=== PATIENT | female | born 1960 | race Caucasian/White ===

== ENCOUNTER 2017-04-04 07:30 | Inpatient (IN) | payer BC ==
--- OUTSIDE RECORDS SUMMARY | 2017-04-11 05:58 | XMS REPORT ---
:1960 External Reference #:[id number] Author Organization [facility] [employer] Address [address] [address] Phone [phone] Care Team Providers Name Role Phone Terri Merritt PA Primary Care Physician Unavailable Payers Type Date Identification Numbers Payment Provider Subscriber Commercial Policy Number: [id number] [employer] Gerda Batista Group Name: 804 [address] [address] PayID: [id number] [place] [address] Problems Date Description Provider Status Onset: 03/18/2017 Sciatica Juan Diego Garcia M.D. Active Onset: 08/03/2016 Ganglion/synovial cyst - ankle/foot Juan Diego Garcia M.D. Active Onset: 11/11/2015 Localized, primary osteoarthritis Juan Digeo Garcia M.D. 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 as needed [place] Active Tablets 5-325mg 1-2 by mouth Unknown /0000 every 4 hours as needed Multi Complete 00 Active Capsules daily Unknown /0000 Probiotic 00 Active Capsules 1 by mouth Unknown /0000 every day Almotriptan Active Tablets 12.5mg 1 by mouth Unknown Malate /0000 twice a day as needed migraine max 2 days/wk Vitamin E 00 Hx Capsules 100Unit occasionally Unknown /0000 - 03/14 Aspirin 00 Hx Chewtabs 81mg 1 by mouth Unknown /0000 every day - 03/14 Axert Hx Tablets 12.5mg 1 twice a day Unknown /0000 max 2d/wk - 04/04 Caltrate 600+D Hx Chewtabs 600-400mg 1 by mouth Unknown /0000 -Unit twice a day - 03/15 Glucosamine Hx Capsules 1500Com 1 by mouth Unknown Chondroitin 1500 /0000 every day Complex - 03/14 Meloxicam Hx Tablets 7.5mg take 1 tab by Unknown /0000 mouth qdaily - with food 03/15 Turmeric Hx Capsules 500mg 2 tabs 3x a Unknown Curcumin / day - 03/14 Vitamin D-1000 Hx Tablets 1000Unit 1 by mouth Unknown Maximum Strength /0000 every day - 03/14 Meloxicam Hx Tablets 7.5mg take one tab Unknown /0000 twice daily - as needed for 04/04 pain, other nsaids Vital Signs Date Vital Result Comment 04/06/2017 Height 64 inches 5'4" Weight 231.00 lb Heart Rate 80 /min BP Systolic Recheck 132 mmHg BP Diastolic Recheck 84 mmHg Respiratory Rate 16 /min Body Temperature 98.0 F BMI (Body Mass Index) 39.6 kg/m2 03/23/2017 Height 64 inches 5'4" Weight 243.00 lb BP Systolic 130 mmHg BP Diastolic 80 mmHg Respiratory Rate 16 /min Body Temperature 97.0 F Pain Level 3 BMI (Body Mass Index) 41.7 kg/m2 03/18/2017 Height 64 inches 5'4" Weight 243.00 lb Heart Rate 88 /min BP Systolic Recheck 134 mmHg BP Diastolic Recheck 86 mmHg Respiratory Rate 16 /min Body Temperature 97.9 F BMI (Body Mass Index) 41.7 kg/m2 12/14/2016 Height 64 inches 5'4" Weight 226.00 lb Heart Rate 76 /min BP Systolic Recheck 122 mmHg BP Diastolic Recheck 80 mmHg Respiratory Rate 16 /min Body Temperature 98.6 F BMI (Body Mass Index) 38.8 kg/m2 08/03/2016 Height 64 inches 5'4" Weight 225.00 lb Heart Rate 76 /min BP Systolic Recheck 130 mmHg BP Diastolic Recheck 80 mmHg Respiratory Rate 16 /min Body Temperature 98.0 F BMI (Body Mass Index) 38.6 kg/m2 07/06/2016 Height 64 inches 5'4" Weight 225.00 lb Heart Rate 80 /min BP Systolic Recheck 128 mmHg BP Diastolic Recheck 80 mmHg Respiratory Rate 16 /min Body Temperature 98.0 F BMI (Body Mass Index) 38.6 kg/m2 06/22/2016 Height 64 inches 5'4" Weight 225.00 lb Heart Rate 76 /min BP Systolic Recheck 134 mmHg BP Diastolic Recheck 86 mmHg Respiratory Rate 16 /min Body Temperature 98.0 F BMI (Body Mass Index) 38.6 kg/m2 06/11/2016 Height 64 inches 5'4" Weight 226.00 lb Heart Rate 76 /min BP Systolic Recheck 128 mmHg BP Diastolic Recheck 84 mmHg Respiratory Rate 16 /min Body Temperature 98.1 F BMI (Body Mass Index) 38.8 kg/m2 05/18/2016 Height 64 inches 5'4" Weight 225.00 lb Heart Rate 76 /min BP Systolic Recheck 130 mmHg BP Diastolic Recheck 84 mmHg Respiratory Rate 16 /min Body Temperature 98.2 F BMI (Body Mass Index) 38.6 kg/m2 03/23/2016 Height 64 inches 5'4" Weight 225.00 lb Heart Rate 80 /min BP Systolic Recheck 130 mmHg BP Diastolic Recheck 84 mmHg Respiratory Rate 16 /min Body Temperature 98.6 F BMI (Body Mass Index) 38.6 kg/m2 11/11/2015 Height 64 inches 5'4" Weight 224.00 lb Heart Rate 80 /min BP Systolic Recheck 122 mmHg BP Diastolic Recheck 84 mmHg Respiratory Rate 16 /min Body Temperature 97.9 F BMI (Body Mass Index) 38.4 kg/m2 Results Test Date Test Result H/L Range Note CBC No Diff 03/23/2017 White Blood Count 5.5 10^3/uL 3.5-10.8 1 Red Blood Count 5.01 10^6/uL 4.0-5.4 1 Hemoglobin 14.1 g/dL 12.0-16.0 1 Hematocrit 42 % 35-47 1 Mean Corpuscular Volume 84 fL 80-97 1 Mean Corpuscular Hemoglobin 28 pg 27-31 1 Mean Corpuscular HGB Conc 33 g/dL 31-36 1 Red Cell Distribution Width 15 % 10.5-15 1 Platelet Count 275 10^3/uL 150-450 1 Mean Platelet Volume 9 um3 7.4-10.4 1 Comp Metabolic Panel 03/23/2017 Sodium 138 mmol/L 133-145 1 Potassium 4.1 mmol/L 3.5-5.0 1 Chloride 101 mmol/L 101-111 1 Co2 Carbon Dioxide 31 mmol/L 22-32 1 Anion Gap 6 mmol/L 2-11 1 Glucose 85 mg/dL 70-100 1 Blood Urea Nitrogen 15 mg/dL 6-24 1 Creatinine 0.83 mg/dL 0.51-0.95 1 BUN/Creatinine Ratio 18.1 8-20 1 Calcium 9.8 mg/dL 8.6-10.3 1 Total Protein 7.0 g/dL 6.4-8.9 1 Albumin 4.2 g/dL 3.2-5.2 1 Globulin 2.8 g/dL 2-4 1 Albumin/Globulin Ratio 1.5 1-3 1 Total Bilirubin 0.40 mg/dL 0.2-1.0 1 Alkaline Phosphatase 93 U/L 34-104 1 Alt 27 U/L 7-52 1 Ast 15 U/L 13-39 1 Egfr Non- 71.1 >60 1 Egfr 91.5 >60 1, 2 Inr/Protime 03/23/2017 Inr 0.95 0.77-1.02 1 Laboratory test finding 03/23/2017 Partial Thrombo Time 27.2 seconds 26.0 -36.3 1, 3 PTT Type & Screen 03/23/2017 Patient Blood Type A Positive 1 Antibody Screen NEGATIVE 1 Urinalysis Profile 03/23/2017 Urine Color Straw Urine Appearance Clear Urine Specific [place] 1.005 Low 1.010-1.030 Urine pH 6.0 5-9 Urine Urobilinogen Negative Negative Urine Ketones Negative Negative Urine Protein Negative Negative Urine Leukocytes Negative Negative Urine Blood Negative Negative Urine Nitrite Negative Negative Urine Bilirubin Negative Negative Urine Glucose Negative Negative Urine Culture And Sensitivities 03/23/2017 Urine Culture SEE RESULT BELOW 4 1 AA 04/11 2 Because ethnic data is not always readily available, this report includes an eGFR for both -Americans and non- Americans. The National Kidney Disease Education Program (NKDEP) does not endorse the use of the MDRD equation for patients that are not between the ages of 18 and 70, are , have extremes of body size, muscle mass, or nutritional status, or are non- or non-. According to the National Kidney Foundation, irrespective of diagnosis, the stage of the disease is based on the level of kidney function: Stage Description GFR(mL/min/1.73 m(2)) 1 Kidney damage with normal or decreased GFR 90 2 Kidney damage with mild decrease in GFR 60-89 3 Moderate decrease in GFR 30-59 4 Severe decrease in GFR 15-29 5 Kidney failure <15 (or dialysis) 3 AA 04/11 4 SEE RESULT BELOW Name: GERDA BATISTA : [address]: Juan Diego Garcia MD Acct: [id number] Unit: [id number] AGE: 56 Location: [facility] Re03/23/17 SEX: F Status: REG REF SPEC: [id number] CHALO: 03/23/17-[address] [place] [address] DR: Juan Diego Garcia MD REQ: [id number] RECD: 03/23/17 STATUS: MARLEE ROCK DR: Terri Merritt PA _ SOURCE: URINE [facility]: ORDERED: Urine Culture Procedure Result Reported Site Urine Culture Final 03/24/17900 ML No Growth (<1,000 CFU/mL) * ML - MAIN LAB ([facility]) . END OF REPORT * ML=Testing performed at Main Lab DEPARTMENT OF PATHOLOGY, [address] [place] [address] Eros Fisher M.D. Director [facility] # [id number] Procedures Date CPT Code Description Status 03/18/2017 Inject/Drain Joint/Bursa Major Completed 07/06/2016 Inject/Drain Joint/Bursa Major Completed 06/22/2016 Inject/Drain Joint/Bursa Major Completed 06/11/2016 Inject/Drain Joint/Bursa Major Completed 03/23/2016 Inject/Drain Joint/Bursa Major Completed Encounters Type Date Location Provider CPT E/M Dx Office Visit 03/18/2017 [facility] 06733 M17.12 1:30p [facility] M54.31 Office Visit 12/14/2016 2:30p [facility] 78015 M17.11 [facility] M67.472 Office Visit 08/03/2016 2:45p [facility] M.D. 66451 M17.0 [facility] M67.472 Office Visit 06/22/2016 2:30p [facility] 68849 M17.12 [facility] M70.51 Office Visit 05/18/2016 3:45p [facility] 38653 M17.0 [facility] Office Visit 03/23/2016 3:30p [facility] 12642 M17.11 [facility] Office Visit 11/11/2015 3:30p [facility] 47999 M17.0 [facility] Plan of Care Future Appointment(s):10/05/2017 2:00 pm - John Matt M.D. at [facility] Gfhvdzuz53/20/2018 10:30 am - Juan Diego Garcia M.D. at [facility] Qfhhvujl29/29/2018 10:00 am - DELIA Tirado at [facility]/11/2017 10:00 am - Juan Diego Garcia M.D. at [facility]
--- OUTSIDE RECORDS SUMMARY | 2017-04-11 05:59 | XMS REPORT ---
:1960 External Reference #:[id number] Author Organization [facility] Address [address] [address] Phone [phone] Care Team Providers Name Role Phone Terri Merritt PA Care Team Information Organ Recovery Coordinator Unavailable Terri Merritt PA Primary Care Physician Unavailable Payers Type Date Identification Numbers Payment Provider Subscriber Commercial Policy Number: [id number] BS [employer] Gerda Batista Group Name: [id number] [address] [address] PayID: [id number] [place] [address] Problems Date Description Provider Status Onset: 03/18/2017 Sciatica Juan Diego Garcia M.D. Active Onset: 08/03/2016 Ganglion/synovial cyst - ankle/foot Juan Diego Garcia M.D. Active Onset: 11/11/2015 Localized, primary osteoarthritis Juan Diego Garcia M.D. 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 as needed Axert Active Tablets 12.5mg 1 twice a day Unknown /0000 max 2d/wk [place] 00 Active Tablets 5-325mg 1-2 by mouth Unknown /0000 every 4 hours as needed Multi Complete Active Capsules daily Unknown /0000 Meloxicam Active Tablets 7.5mg take one tab Unknown /0000 twice daily as needed for pain, avoid other nsaids Probiotic Active Capsules 1 by mouth Unknown /0000 every day Vitamin E 00 Hx Capsules 100Unit occasionally Unknown /0000 - 03/14 Aspirin Hx Chewtabs 81mg 1 by mouth Unknown /0000 every day - 03/14 Caltrate 600+D Hx Chewtabs 600-400mg 1 by mouth Unknown /0000 -Unit twice a day - 03/15 Glucosamine Hx Capsules 1500Com 1 by mouth Unknown Chondroitin 1500 /0000 every day Complex - 03/14 Meloxicam Hx Tablets 7.5mg take 1 tab by Unknown /0000 mouth qdaily - with food 03/15 Turmeric Hx Capsules 500mg 2 tabs 3x a Unknown day - 03/14 Vitamin D-1000 Hx Tablets 1000Unit 1 by mouth Unknown Maximum Strength /0000 every day - 03/14 Vital Signs Date Vital Result Comment 03/18/2017 Height 64 inches 5'4" Weight 243.00 [...] BMI (Body Mass Index) 38.4 kg/m2 Results Description No Information Procedures Date CPT Code Description Status 03/18/201739121 Inject/Drain Joint/Bursa Major Completed 07/06/201642496 Inject/Drain Joint/Bursa Major Completed 06/22/201676697 Inject/Drain Joint/Bursa Major Completed 06/11/201624960 Inject/Drain Joint/Bursa Major Completed 03/23/201613205 Inject/Drain Joint/Bursa Major Completed Encounters Type Date Location Provider CPT E/M Dx Office Visit 12/14/2016 [facility], 45007 M17.11 2:30p [facility] M67.472 Office Visit 08/03/2016 2:45p [facility] M.D. 61433 M17.0 [facility] M67.472 Office Visit 06/22/2016 2:30p [facility] 83041 M17.12 [facility] M70.51 Office Visit 05/18/2016 3:45p [facility] 88973 M17.0 Service Order Exped[facility] Office Visit 03/23/2016 3:30p [facility] 76740 M17.11 Service Order Exped[facility] Office Visit 11/11/2015 3:30p [facility] 06642 M17.0 [facility] Plan of Care Future Appointment(s):03/23/2017 9:00 am - [facility] Diego Garcia M.D. at [facility]/04/2017 7:30 am - DELIA Tirado at [facility]05/03/2017 10:30 am - Juan Diego Garcia M.D. at [facility] Pkevziwu99/22/2018 7:30 am - Juan Diego Garcia M.D. at [facility]03/18/2017 - Juan Diego Garcia M.D.M17.12 Unilateral primary osteoarthritis, left kneeM54.31 Sciatica, right sideFollow up:week before or the week of 05/02 (4 weeks from surgery)
--- OUTSIDE RECORDS SUMMARY | 2017-04-11 05:59 | XMS REPORT ---
:1960 External Reference #:[id number] Author Organization [employer] Address [address] [address] Phone [phone] Care Team Providers Name Role Phone Terri Merritt PA Primary Care Physician Unavailable Payers Type Date Identification Numbers Payment Provider Subscriber Commercial Policy Number: [id number] [facility] Gerda Batista Group Name: 804 [address] [address] PayID: [id number] [place] [address] Problems Date Description Provider Status Onset: 03/18/2017 Sciatica Juan Diego Garcia M.D. Active Onset: 08/03/2016 Ganglion/synovial cyst - ankle/foot Juan Diego Garcia M.D. Active Onset: 11/11/2015 Localized, primary osteoarthritis Juan Diego Garcia M.D. 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 as needed Axert Active Tablets 12.5mg 1 twice a day Unknown /0000 max 2d/wk [place] 00 Active Tablets 5-325mg 1-2 by mouth [...] 03/14 Vital Signs Date Vital Result Comment 03/23/2017 Height 64 inches 5'4" Weight 243.00 [...] Information Procedures Date CPT Code Description Status 03/18/201750411 Inject/Drain Joint/Bursa Major Completed 07/06/201620090 Inject/Drain Joint/Bursa Major Completed 06/22/201612691 Inject/Drain Joint/Bursa Major Completed 06/11/201619317 Inject/Drain Joint/Bursa Major Completed 03/23/201688798 Inject/Drain Joint/Bursa Major Completed Encounters Type Date Location Provider CPT E/M Dx Office Visit 12/14/2016 [facility], [address] M17.11 2:30p Backroom Associate [facility] M67.472 Office Visit 08/03/2016 2:45p [facility] M.D. 73482 M17.0 [facility] M67.472 Office Visit 06/22/2016 2:30p [facility] [address]3580 M17.12 [facility] M70.51 Office Visit 05/18/2016 3:45p [facility] [address]98[address] M17.0 Rad[facility] Office Visit 03/23/2016 3:30p [facility] 65761 M17.11 Back[facility] Office Visit 11/11/2015 3:30p [facility] 38888 M17.0 [facility] Plan of Care Future Appointment(s):04/11/2017 9:30 am - DELIA Tirado at [facility]/03/2017 10:30 am - Juan Diego Garcia M.D. at [facility] At Sxbflkqw60/29/2018 9:30 am - [facility] Garcia M.D. at [facility]
--- OUTSIDE RECORDS SUMMARY | 2017-04-11 05:59 | XMS REPORT ---
:1960 External Reference #:[id number] Author Organization [facility] Address [address] [address] Phone [phone] Care Team Providers Name Role Phone Terri Merritt PA Primary Care Physician Unavailable Payers Type Date Identification Numbers Payment Provider Subscriber Commercial Policy Number: [id number] [facility] Gerda Batista Group Name: 804 [address] [address] PayID: [id number] [place] [address] Problems Date Description Provider Status Onset: 03/18/2017 Sciatica Juan Diego Garcia M.D. Active Onset: 08/03/2016 Ganglion/synovial cyst - ankle/foot Juan Diego Garcia M.D. Active Onset: 11/11/2015 Localized, primary osteoarthritis Juan Diego Garcia M.D. 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 ETOH Use Denies alcohol use Smoking [...] twice a day Unknown /0000 max 2d/wk [place] 00 Active Tablets 5-325mg 1-2 by mouth [...] Information Procedures Date CPT Code Description Status 03/18/201784765 Inject/Drain Joint/Bursa Major Completed 07/06/201630785 Inject/Drain Joint/Bursa Major Completed 06/22/201696564 Inject/Drain Joint/Bursa Major Completed 06/11/201619637 Inject/Drain Joint/Bursa Major Completed 03/23/201667282 Inject/Drain Joint/Bursa Major Completed Encounters Type Date Location Provider CPT E/M Dx Office Visit 12/14/2016 [facility], 125[address] M17.11 2:30p 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 12065 M17.0 Materials Handling Coord[facility] M67.472 Office Visit 06/22/2016 2:30p [facility] 93220 M17.12 Materials Handling Coord[facility] M70.51 Office Visit 05/18/2016 3:45p [facility] 85649 M17.0 [facility] Office Visit 03/23/2016 3:30p [facility] 42587 M17.11 Materials Handling Coord[facility] Office Visit 11/11/2015 3:30p [facility] 70401 M17.0 [facility] Plan of Care Future Appointment(s):04/11/2017 9:30 am - DELIA Tirado at [facility]/03/2017 10:30 am - Juan Diego Garcia M.D. at [facility] At Vgfyowjk71/29/2018 9:30 am - [facility] Garcia M.D. at [facility]
[2017-04-11] MEDS ORDERED: Buffered Lidocaine 0.9% SYRIN* 5 ML/SYR SYRINGE INTRADERM ONE (06:00)
[2017-04-11] MEDS ORDERED: Clindamycin 900 MG IVPREMIX(* 900 MG/50 ML SDV IV ONE (06:02)
[2017-04-11] MEDS ORDERED: Buffered Lidocaine 0.9% SYRIN* 5 ML/SYR SYRINGE ONE (06:02)
[2017-04-11] MEDS ORDERED: ceFAZolin 2 GM PREMIX (*) 2 GM/50 ML BAG IVPB ONE (07:05)
[2017-04-11] MEDS ORDERED: Midazolam* 1 MG/ML 2 ML VIAL (2 MG) ONE ×2 (07:11→07:44)
[2017-04-11] MEDS ORDERED: fentaNYL* 50 MCG/ML 2 ML VIAL (100 MCG VIAL) ONE (07:11)
[2017-04-11] MEDS ORDERED: Bupivacaine 0.5% SDV PF* 10-30ML VIAL ONE ×2 (07:20→08:22)
[2017-04-11] MEDS ORDERED: Lidocaine 1% MPF wEPI 200,000* 30 ML SDV ONE (07:20)
[2017-04-11] MEDS ORDERED: Morphine PF AMP (0.5MG/ML)* 5 MG/10 ML AMP ONE (07:56)
[2017-04-11] MEDS ORDERED: Ondansetron INJ* 2 MG/ML VIAL ONE (08:16)
[2017-04-11] MEDS ORDERED: Famotidine IV* 10 MG/ML 2 ML (20 mg) ONE (08:16)
[2017-04-11] MEDS ORDERED: Metoclopramide IV* 5 MG/ML 2 ML VIAL ONE (08:16)
[2017-04-11] MEDS ORDERED: Ketorolac INJ* 30 MG/ML 1 ML VIAL ONE (08:16)
[2017-04-11] MEDS ORDERED: Dexamethasone IV* 4 MG/ML 1 ML (4 MG) ONE (08:16)
[2017-04-11] MEDS ORDERED: diPHENhydraMINE IV* 50 MG/ML 1 ml VIAL (BENADRYL) ONE ×2 (08:22→11:15)
[2017-04-11] MEDS ORDERED: Scopolamine 1.5 mg* PATCH ONE (08:25)
[2017-04-11] MEDS ORDERED: EPHEDrine (Pressors)* 50 MG/ML VIAL ONE (08:25)
[2017-04-11] MEDS ORDERED: Propofol* 10 MG/ML 20 ML BTL IV PUSH ONE ×2 (09:25→09:26)
[2017-04-11] MEDS ORDERED: fentaNYL* 50 MCG/ML 2 ML VIAL (100 MCG VIAL) IV PRN (10:02)
[2017-04-11] MEDS ORDERED: Naloxone* 0.4 MG/ML 1 ML VIAL IV PRN ×2 (10:02→10:03)
[2017-04-11] MEDS ORDERED: PROCHLORPERAZINE INJ 5 MG/ML 2 ML VIAL IV PRN (10:03)
[2017-04-11] MEDS ORDERED: Ondansetron INJ* 2 MG/ML VIAL IV PRN (10:03)
[2017-04-11] MEDS ORDERED: Naloxone* 2 MG in NS 0.9% 250 ML* 250 ML IV PRN (10:03)
[2017-04-11] MEDS ORDERED: diPHENhydraMINE IV* 50 MG/ML 1 ml VIAL (BENADRYL) IV PRN (10:03)
[2017-04-11] MEDS ORDERED: Nalbuphine* 20 MG/ML 1 ML VIAL IV PRN ×2 (10:03)
[2017-04-11] MEDS ORDERED: Acetaminophen TAB* 325 MG PO PRN (10:03)
[2017-04-11] MEDS ORDERED: HYDROcodone/ACETAMIN 5-325 MG* 1 TAB PO PRN (10:03)
[2017-04-11] MEDS ORDERED: oxyCODONE/Acetamin 5/325 MG* TAB PO PRN ×2 (11:09)
[2017-04-11] MEDS ORDERED: oxyCODONE TAB* 5 MG TAB PO PRN (11:09)
[2017-04-11] MEDS ORDERED: Polyethylene Glycol 3350* 17 GM PACKET PO PRN (11:09)
[2017-04-11] MEDS ORDERED: Magnesium Hydroxide LIQ* 30 ML UDC PO PRN (11:09)
[2017-04-11] MEDS ORDERED: ALMOTRIPTAN 12.5 MG PO PRN (11:24)
--- NOTE | 2017-04-11 12:14 | RAD ---
HISTORY: Status post right knee arthroplasty COMPARISONS: March 23, 2017 VIEWS: 2, Frontal and lateral views of the right knee FINDINGS: BONE DENSITY: Normal. BONES: The patient is status post right knee arthroplasty. There is no hardware failure or osteolysis. JOINTS: The patient is status post right knee arthroplasty. ALIGNMENT: There is no dislocation. SOFT TISSUES: There is post surgical change to the soft tissue. OTHER FINDINGS: None. IMPRESSION: STATUS POST RIGHT KNEE ARTHROPLASTY.
[2017-04-11] MEDS ORDERED: DiMENhydriNATE IV* 50 MG/ML VIAL ONE (12:36)
[2017-04-11] MEDS: DiMENhydriNATE IV* 50 MG/ML VIAL IV PUSH PRN ×2 (12:36→22:02)
[2017-04-11] MEDS: D5W 1/2 NS 1000 ML BAG* 1,000 ML IV SCH (13:53)
[2017-04-11] MEDS: Ketorolac INJ* 30 MG/ML 1 ML VIAL IV PUSH SCH ×2 (14:49→18:10)
[2017-04-11] MEDS: ceFAZolin 1 GM in Dextrose (*) 1 GM/50 ML BAG IVPB SCH (16:44)
[2017-04-11] MEDS ORDERED: Warfarin TAB(*) 10 MG PO ONE (17:00)
[2017-04-11] MEDS: Docusate CAP* 100 MG PO SCH (21:59)
[2017-04-11] MEDS: Allopurinol TAB* 300 MG PO SCH (21:59)
[2017-04-11] MEDS: Magnesium Hydroxide LIQ* 30 ML UDC PO SCH (22:00)
[2017-04-12] MEDS: D5W 1/2 NS 1000 ML BAG* 1,000 ML IV SCH (00:48)
[2017-04-12] MEDS: Ketorolac INJ* 30 MG/ML 1 ML VIAL IV PUSH SCH ×4 (00:49→17:28)
[2017-04-12] MEDS: ceFAZolin 1 GM in Dextrose (*) 1 GM/50 ML BAG IVPB SCH ×2 (00:55→08:06)
--- NOTE | 2017-04-12 01:04 | CONS ---
CONSULTATION REPORT: DATE OF CONSULT: 04/11/17 REQUESTING SERVICE: Orthopedics. REASON FOR CONSULT: Medical co-management. CHIEF COMPLAINT: Postop day 0 from right TKA. HISTORY OF PRESENT ILLNESS: This is a 56-year-old female with a history of migraines and a thyroid nodule and arthritis who presents today for an elective right total knee replacement. 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 Payan today. She was seen in her room postoperatively and at this time has no complaints. PAST MEDICAL HISTORY: Migraine, hot flashes, osteoarthritis, and thyroid nodule. HOME MEDICATIONS: 1. Flexeril 10 mg t.i.d. p.r.n. 2. Axert 12.5 mg b.i.d. p.r.n. migraines. 3. Bertrand p.r.n. pain. 4. Mobic p.r.n. pain. 5. Probiotic daily. 6. Aspirin 81 mg daily. ALLERGIES: CODEINE, DILAUDID, PENICILLIN, and TRAMADOL. FAMILY HISTORY: Her father of a myocardial infarction at age 62. Her mother had emphysema. SOCIAL HISTORY: She lives with her . She has never smoked though she was exposed to second-hand smoke. She does not drink alcohol or use any drugs. 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 REVIEW OF SYSTEMS: She denies recent fevers, chills, weight loss, weight gain, headaches, chest pain, shortness of breath, nausea, vomiting, diarrhea, or constipation. PHYSICAL EXAM: Temperature 97.9, heart rate 56, respiratory rate 12, pulse ox 100% on 1 L, and blood pressure 131/61. General: Alert, well-appearing female , in no distress. HEENT: Pupils are equal, round, and reactive to light. Moist mucosa. No oropharyngeal exudates or erythema. Neck: No JVP. No lymphadenopathy. Thyroid is nonpalpable. Chest: Regular rate and rhythm. No murmurs. PMI nondisplaced. Lungs: Clear bilaterally. Abdomen: Soft and nontender. Obese. Nondistended. No guarding or rigidity. Extremities: Right knee dressed. Distal pulses are 2+ bilaterally. Sensation is grossly intact. Neurologic: Oriented x3. ASSESSMENT AND PLAN: This is a 56-year-old female with a history of a thyroid nodule and migraines who was admitted today for elective right TKA. 1. Postop day #0. Continue pain management, PT, and Laird catheter removal as per Orthopedics plan. 2. Thyroid nodule. This was biopsied at [place] last month and the results were reported to be equivocal. She received a second opinion with [facility] who suggested that no further biopsy was needed and that she should follow up with them for a repeat ultrasound. Nothing to do during this hospitalization. 3. Migraines. She takes a baby aspirin for this as well as Axert p.r.n. Nothing to do while she is admitted unless she gets a migraine. 4. Menopause. She is to undergo hormone replacement therapy after discharge and will follow up with her PCP for this. 5. DVT prophylaxis. Warfarin per Orthopedics orders. [id number] #: [id number] MTDD
--- NOTE | 2017-04-12 01:46 | OP ---
DATE OF OPERATION: 04/11/17 - ROOM #341 DATE OF : 60 ATTENDING SURGEON: Juan Diego Garcia MD DIRECTOR MEDICAL SURGICAL: DELIA Rodgers ANESTHESIOLOGIST: Dr. Hassan ANESTHESIA: Regional spinal and sedation. PRE-OP DIAGNOSIS: Osteoarthritis, right knee. POST-OP DIAGNOSIS: Osteoarthritis, right knee. OPERATIVE PROCEDURE: Right total knee arthroplasty. ESTIMATED BLOOD LOSS: 50 cc. COMPLICATIONS: None. HARDWARE: Genevieve low maite implants. FlexPro D femur, #3 tibia, 12-mm polyethylene, 32 mm all polyethylene patellar button. INDICATIONS: Mrs. Batista is a 56-year-old female who has been having troubles with her knees for sometime. She was [id number] on the medial compartment, significant spurring and arthrosis in all 3 compartments. 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 Risks of surgery such as infection, scar formation, stiffness, DVT, pulmonary embolism, hardware failure, and continued pain were some of the risks discussed. She had been declared medically optimized and wished to proceed. DESCRIPTION OF PROCEDURE: The patient was brought to the OR and a femoral nerve block was placed. Spinal anesthesia was then introduced. Tourniquet was placed over the proximal right thigh and was used during the case. Total tourniquet time would be approximately 75 minutes. Right knee was prepped and then draped. Esmarch was used to exsanguinate the leg and the tourniquet was raised. Midline incision was made centered about the patella and carried proximally and distally for about 7 cm. Incision was carried down through the skin and subcutaneous fat. Extensor mechanism was exposed and sharp parapatellar arthrotomy was made. Quite a bit of clear yellowish joint fluid was encountered. Small pearls were also encountered in the suprapatellar pouch. Fat pad was sharply excised and soft tissues were sharply elevated from the medial side of the tibia. Patella measured 22 mm in thickness and a nice 10 mm cut was taken. Patella was then easily subluxated laterally and the knee was flexed up. Step drill was used to open up the femoral canal and intramedullary guide was placed. Guide was adjusted until it was parallel with the epicondyle and then distal femoral cutting guide was pinned into place. Intramedullary guide was removed and a distal femoral cut was taken. This had been set to take 2 mm from the femur as well as set in an angle of 2 degrees. She appeared to have quite the straight femur and I wanted to try and take a little bit more from the medial side. Femur was sized and a D sat nicely. Holes were drilled and pins were placed. Cutting block was placed and amisha wing was used to make sure I would not notch anteriorly and this needed to be brought up some. After redrilling and placing the pins twice, finally it appeared I would take a nice cut anteriorly and cutting guide was replaced. Anterior femoral cut was taken and the anterior cut was perfect. Posterior and chamfer cuts were then taken. Attention was turned to the tibia. Step drill was used to open up the tibial canal and symmetric guide was placed. Outrigger was assembled and adjusted until it would take 2 mm from the worn medial side. Proximal tibial cut was taken and it appeared a nice cut was obtained. Spacer block was placed and she sat in valgus. It could be seen where some of this was on the tibia and some of this was on the femur. Tibia was then recut taking more from the lateral side and tibial alignment was now perfect. On the femur, I free-ended a cut taking an additional thickness of the saw blade from the medial side and then leveled this off to the lateral side. Cutting block was replaced and the chamfer cuts were recut. A 12 spacer block now sat very nicely and there was just a little bit of plate to the varus stress where she has opened a little bit. Her motion, however, was better where before she did not come out into full extension and now she locked out fully. She was limited in flexion more by her body habitus. Tibia was sized and a 3 sat perfectly. Hole was drilled and proximal tibia was punched. Attention was returned to the femur. Notch cut was finished using the notch cut finishing guide and a stud holes were drilled. She was trailed with a 12 and came out nicely into full extension and flexed easily. Without the trial, the patella tended to drift off the femur some. Patella was sized and a 32 and sat very nicely. Holes were drilled and trial was snapped into place. With no thumbs, patellar tracking was fine. Knee was then copiously pulse lavaged. Trial instrumentation was removed and the knee was again pulse lavaged. Cement and stem extension for the tibia was being prepared. Tibia followed by femur and patella were all cemented into place. Excess cement was removed and the cement was allowed to harden. Once the cement had hardened, the knee was searched for excess cement. The tourniquet was then let down. Few small bleeders encountered were ligated using electrocautery. Knee was then copiously pulse lavaged and searched for cement. Few small pieces were found. The knee was again copiously pulse lavaged, again searched, and looked good. 12 polyethylene was then snapped into place. She had the same very good motion and stability. Parapatellar arthrotomy was repaired using interrupted #1 Vicryl sutures. Knee was again pulse lavaged and the subcutaneous tissue were reapproximated in layers using 2-0 Vicryl. Skin was closed using stanford. Sterile dressing and a Cryo/Cuff were applied in the OR. The patient was then awakened and stable on transfer to the recovery room. [id number]/[facility] #: [id number] NANI
[2017-04-12] MEDS ORDERED: Ondansetron TAB* 4 MG PO PRN (02:03)
[2017-04-12] MEDS ORDERED: Ondansetron INJ* 2 MG/ML VIAL IV PRN (02:03)
[2017-04-12] MEDS ORDERED: diPHENhydraMINE IV* 50 MG/ML 1 ml VIAL (BENADRYL) IV PRN (02:03)
[2017-04-12] MEDS ORDERED: Morphine INJ* 2 MG/ML 1 ML SYRINGE (TWO MG - NEW SYRINGE VERSION) IV PRN (03:00)
[2017-04-12] MEDS ORDERED: HYDROcodone/ACETAMIN 5-325 MG* 1 TAB PO PRN (03:00)
[2017-04-12] MEDS ORDERED: oxyCODONE/Acetamin 5/325 MG* TAB PO PRN ×2 (03:00)
[2017-04-12 05:00] LABS: Hematocrit 34 % (35-47); Hemoglobin 11.2 g/dl (12.0-16.0); Mean Platelet Volume 9 um3 (7.4-10.4); Platelet Count 196 10^3/ul (150-450)
[2017-04-12 05:10] LABS: INR 1.1 (0.77-1.02)
[2017-04-12 05:13] LABS: EGFR Non-African American 76.4 (>60)
[2017-04-12] MEDS: Ascorbic Acid TAB* 500 MG PO SCH (08:53)
[2017-04-12] MEDS: Docusate CAP* 100 MG PO SCH ×2 (08:53→21:03)
[2017-04-12] MEDS: Cyclobenzaprine TAB* 10 MG PO PRN ×2 (08:53→14:55)
[2017-04-12] MEDS: Lactobacillus Acidophilu (GG)* 1 CAP CAP PO SCH (08:53)
[2017-04-12] MEDS: Magnesium Hydroxide LIQ* 30 ML UDC PO SCH ×2 (08:54→21:04)
--- NOTE | 2017-04-12 12:28 | PN ---
Progress Note - Progress Note Date of Service: 04/12/17 SOAP: Subjective: []Patient seen OOB in chair. Pain is aggravated by walking, she is now resting in a chair. Denies CP, SOB, nausea or dizziness. Objective: [] Vital Signs Temp 98.5 F 04/12/17 11:26 Pulse 59 04/12/17 11:26 Resp 17 04/12/17 11:26 BP 129/67 04/12/17 11:26 Pulse Ox 97 04/12/17 11:26 Intake & Output 04/11/17 04/12/17 04/12/17 18:59 06:59 18:59 Intake Total 2050 2390 1316 Output Total 800 950 250 Balance 1250 1440 1066 Intake: IV Fluids 2049 1035 1091 ABX - CEFAZOLIN 55 110 D5W 03/15 NS 980 981 LR 2000 NS 50ML, Cefazolin 2G 50 Oral 0 1355 225 Output: Urine 250 Laird 800 950 Laboratory Last Values Hgb 11.2 g/dl (12.0-16.0) L 04/12/17 04:48 Hct 34 % (35-47) L 04/12/17 04:48 Plt Count 196 10^3/ul (150-450) 04/12/17 04:48 MPV 9 um3 (7.4-10.4) 04/12/17 04:48 INR (Anticoag Therapy) 1.10 (0.77-1.02) H 04/12/17 04:48 Sodium 132 mmol/L (133-145) L 04/12/17 04:48 Potassium 4.2 mmol/L (3.5-5.0) 04/12/17 04:48 Chloride 99 mmol/L (101-111) L 04/12/17 04:48 Carbon Dioxide 29 mmol/L (22-32) 04/12/17 04:48 Anion Gap 4 mmol/L (2-11) 04/12/17 04:48 BUN 14 mg/dL (6-24) 04/12/17 04:48 Creatinine 0.78 mg/dL (0.51-0.95) 04/12/17 04:48 Est GFR ( Amer) 98.3 (>60) 04/12/17 04:48 Est GFR (Non-Af Amer) 76.4 (>60) 04/12/17 04:48 BUN/Creatinine Ratio 17.9 (8-20) 04/12/17 04:48 Glucose 128 mg/dL (70-100) H 04/12/17 04:48 POC Glucose (mg/dL) 102 mg/dL (70-100) H 04/11/17 06:24 Calcium 8.6 mg/dL (8.6-10.3) 04/12/17 04:48 Blood Type A Positive 04/11/17 06:28 Antibody Screen Negative 04/11/17 06:28 General: Well appearing, NAD RLE: Dressing CDI. Cryo in place. DF/PF intact. 2+ DP. BL LE: calves supple and nontender without erythema, edema or palpable cords. Assessment: []POD 1 sp right total knee arthroplasty Plan: []WBAT PT/OT heparin, coumadin 6 mg Increase [place] from 1/2 to 1 tab for pain control as pain is poorly controlled, but patient is very sensitive. Will also continue tylenol, cyclobenzaprine, toradol.
[2017-04-12] MEDS ORDERED: HYDROcodone/ACETAMIN 5-325 MG* 1 TAB ONE (12:38)
[2017-04-12] MEDS: HYDROcodone/ACETAMIN 5-325 MG* 1 TAB PO PRN ×3 (12:40→18:53)
[2017-04-12] MEDS ORDERED: Warfarin TAB(*) 6 MG PO SCH (17:00)
[2017-04-12] MEDS: Allopurinol TAB* 300 MG PO SCH (21:03)
[2017-04-12] MEDS: Heparin VIAL(*) 5000 UNITS/ML VIAL (FIVE THOUSAND) SUBCUT SCH (21:04)
[2017-04-12] MEDS: HYDROcodone/ACETAMIN 5-325 MG* 1 TAB PO SCH (21:30)
[2017-04-13] MEDS: Ketorolac INJ* 30 MG/ML 1 ML VIAL IV PUSH SCH ×2 (00:41→06:08)
[2017-04-13] MEDS: HYDROcodone/ACETAMIN 5-325 MG* 1 TAB PO PRN ×4 (04:06→18:09)
[2017-04-13] MEDS: Cyclobenzaprine TAB* 10 MG PO PRN ×2 (04:07→19:25)
[2017-04-13 05:38] LABS: INR 1.6 (0.77-1.02)
[2017-04-13 05:52] LABS: Hematocrit 33 % (35-47); Hemoglobin 11.2 g/dl (12.0-16.0); Mean Platelet Volume 9 um3 (7.4-10.4); Platelet Count 184 10^3/ul (150-450)
[2017-04-13] MEDS: Magnesium Hydroxide LIQ* 30 ML UDC PO SCH ×2 (08:29→21:00)
[2017-04-13] MEDS: Docusate CAP* 100 MG PO SCH ×2 (08:35→20:59)
[2017-04-13] MEDS: Ascorbic Acid TAB* 500 MG PO SCH (08:35)
[2017-04-13] MEDS: Heparin VIAL(*) 5000 UNITS/ML VIAL (FIVE THOUSAND) SUBCUT SCH ×2 (08:35→20:59)
[2017-04-13] MEDS: Lactobacillus Acidophilu (GG)* 1 CAP CAP PO SCH (08:35)
--- NOTE | 2017-04-13 10:13 | PN ---
Progress Note - Progress Note Date of Service: 04/13/17 SOAP: Subjective: 56 yo, POD #2 right TKA. Reports pain usually well controlled- skipped midnight pain med dose and woke at 4 AM in significant pain. Pills and toradol helped and doing better again. Objective: VSS: afebrile Labs: H/H: 11.2/33, INR: 1.60 Right knee: wound benign, slight splotchiness proximally, looking like staple irritation. No erythema, no drainage. Can flex some, but pain with motion Assessment: Stable Plan: Continue OOB/PT/DVT prophalaxis possible D/C tomorrow if does well with PT Will have to stop toradol today with her anticogulation.
[2017-04-13] MEDS: oxyCODONE TAB* 5 MG TAB PO PRN ×3 (14:33→23:54)
[2017-04-13] MEDS ORDERED: Warfarin TAB(*) 5 MG PO ONE (17:00)
[2017-04-13] MEDS ORDERED: Morphine INJ* 2 MG/ML 1 ML CARPUJECT IV PRN (18:02)
[2017-04-13] MEDS: Allopurinol TAB* 300 MG PO SCH (20:58)
[2017-04-13] MEDS: HYDROcodone/ACETAMIN 5-325 MG* 1 TAB PO SCH (20:59)
[2017-04-14] MEDS: HYDROcodone/ACETAMIN 5-325 MG* 1 TAB PO PRN ×3 (03:54→12:57)
[2017-04-14 05:23] LABS: Hematocrit 32 % (35-47); Hemoglobin 10.7 g/dl (12.0-16.0); Mean Platelet Volume 9 um3 (7.4-10.4); Platelet Count 194 10^3/ul (150-450)
[2017-04-14 05:35] LABS: INR 1.44 (0.77-1.02)
[2017-04-14] MEDS: Lactobacillus Acidophilu (GG)* 1 CAP CAP PO SCH (08:22)
[2017-04-14] MEDS: Ascorbic Acid TAB* 500 MG PO SCH (08:22)
[2017-04-14] MEDS: Heparin VIAL(*) 5000 UNITS/ML VIAL (FIVE THOUSAND) SUBCUT SCH (08:22)
[2017-04-14] MEDS: Docusate CAP* 100 MG PO SCH (08:22)
[2017-04-14] MEDS: Magnesium Hydroxide LIQ* 30 ML UDC PO SCH (08:26)
--- NOTE | 2017-04-14 08:32 | PN ---
Progress Note - Progress Note Date of Service: 04/14/17 SOAP: Subjective: []Patient seen at bedside. She feels well and desires dc home today. Confirms RLE pain that is tolerable, also confirms feeling of right calf tightness. Denies CP, SOB, nausea, abdominal pain, dizziness, dysuria, feeling of chills. Objective: [] Vital Signs Temp 99.7 F 04/14/17 11:42 Pulse 81 04/14/17 11:42 Resp 18 04/14/17 11:42 BP 126/64 04/14/17 11:42 Pulse Ox 98 04/14/17 11:42 Intake & Output 04/13/17 04/14/17 04/14/17 18:59 06:59 18:59 Intake Total 680 660 Output Total 2400 0 1450 Balance -1720 660 -1450 Intake: Oral 680 660 Output: Urine 2400 0 1450 Other: Estimated Void Medium # Voids 1 Laboratory Last Values Hgb 10.7 g/dl (12.0-16.0) L 04/14/17 05:07 Hct 32 % (35-47) L 04/14/17 05:07 Plt Count 194 10^3/ul (150-450) 04/14/17 05:07 MPV 9 um3 (7.4-10.4) 04/14/17 05:07 INR (Anticoag Therapy) 1.44 (0.77-1.02) H 04/14/17 05:07 Sodium 132 mmol/L (133-145) L 04/12/17 04:48 Potassium 4.2 mmol/L (3.5-5.0) 04/12/17 04:48 Chloride 99 mmol/L (101-111) L 04/12/17 04:48 Carbon Dioxide 29 mmol/L (22-32) 04/12/17 04:48 Anion Gap 4 mmol/L (2-11) 04/12/17 04:48 BUN 14 mg/dL (6-24) 04/12/17 04:48 Creatinine 0.78 mg/dL (0.51-0.95) 04/12/17 04:48 Est GFR ( Amer) 98.3 (>60) 04/12/17 04:48 Est GFR (Non-Af Amer) 76.4 (>60) 04/12/17 04:48 BUN/Creatinine Ratio 17.9 (8-20) 04/12/17 04:48 Glucose 128 mg/dL (70-100) H 04/12/17 04:48 POC Glucose (mg/dL) 102 mg/dL (70-100) H 04/11/17 06:24 Calcium 8.6 mg/dL (8.6-10.3) 04/12/17 04:48 Blood Type A Positive 04/11/17 06:28 Antibody Screen Negative 04/11/17 06:28 General: Well appearing, NAD RLE: Dressing changed. Incision CDI without erythema or discharge. DF/PF intact. BL LE: Calves supple without erythema, edema or palpable cords. Right calf is tender superiorly. Assessment: []56 year old morbidly obese female POD 3 s/p right total knee arthroplasty Plan: []WBAT PT/OT heparin, coumadin 6 mg today Low grade temp of 100 this morning to be monitored before d/c today, patient knows to report any symptoms Dopplar study negative for DVT Plan dc home today
[2017-04-14] MEDS ORDERED: Scopolamine PATCH Remove* 1 NOTE MISC PATCH OFF ONE (10:03)
--- NOTE | 2017-04-14 11:41 | RAD ---
HISTORY: Status post right knee replacement, calf cramping COMPARISONS: None relevant TECHNIQUE: Multiple transverse and longitudinal ultrasound images were obtained of the right lower extremity from the level of the common femoral vein inferiorly through to the infrapopliteal veins using grayscale, color Doppler, and spectral Doppler imaging with and without compression and with augmentation. Comparison images were obtained of the contralateral common femoral vein. FINDINGS: VEINS: The venous system of the right lower extremity is compressible throughout its course, with normal flow on color Doppler imaging and normal response to augmentation on spectral Doppler imaging. SOFT TISSUES: Unremarkable. OTHER FINDINGS: None. IMPRESSION: NO RIGHT LOWER EXTREMITY DEEP VEIN THROMBOSIS
[2017-04-14 11:47] VITALS: BP 126/64
--- NOTE | 2017-04-15 00:13 | DS ---
DISCHARGE SUMMARY: DATE OF ADMISSION: 04/11/17 DATE OF DISCHARGE: PROVIDER: Juan Diego Garcia MD * (DICTATED GY DELIA ELLINGTON) [employer] TECHNICAL MANAGER: DELIA Rodgers PREOPERATIVE DIAGNOSIS: Osteoarthritis of the right knee. OPERATIVE PROCEDURE: Right total knee arthroplasty. INDICATION: Ms. Batista is a 56-year-old female who has been having troubles with her knees for sometime. She is [id number] on the medial compartment, significant spurring and arthrosis in all 3 compartments. 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 HOSPITAL COURSE: On 04/11/17, Ms. Batista was admitted to [facility]. She underwent a right total knee arthroplasty without complications. She was transferred to the PACU where she recovered briefly and then was brought to the short-stay surgical unit in stable condition. On postop day 1, the patient was well appearing, in no acute distress. Dressing was clean, dry, and intact. Cryocuff was in place. Dorsiflexion and plantarflexion intact. 2+ dorsalis pedis pulse. Calves are supple and nontender without erythema, edema, or palpable cords. The pain was controlled with [place] between 1.5 to 1 tablet. Hemoglobin was 11.2, hematocrit was 34, INR was 1.10. Postop day 2, incision was benign, slight splotchiness proximally, looking like staple irritation, no erythema, no drainage. The patient was able to flex some, but pain with motion. H and H was 11.2 and 33. INR 1.60. On postop day 3, the patient was well appearing, in no acute distress. Her dressing was changed. Incision clean, dry , and intact without erythema or discharge. Dorsiflexion and plantar flexion were intact. Calves are supple without erythema, edema, or palpable cords. The right calf was tender superiorly. DVT study was ordered and was negative for DVT. The patient had a low-grade temperature to 100 degrees Fahrenheit. She denied any chest pain, shortness of breath, dysuria, abdominal upset, nausea , or dizziness. Other vitals included pulse of 81, respiratory rate of 18, oxygen saturation 98%, blood pressure 126/64. DISCHARGE MEDICATIONS: 1. Probiotic enzyme tablet 1 tab p.o. q.a.m. 2. Zinc 50 mg p.o. q.a.m. 3. Miscellaneous Natural tablets including Osteo Bi-Flex Joint Shield 1 tab p.o. q.a.m. 4. Vitamin D 1000 units p.o. q.a.m. 5. Vitamin C 1000 mg p.o. q.a.m. 6. Meloxicam 7.5 mg p.o. at bedtime was discontinued. 7. [place] 5/325 one-half to one tablet every 4 hours as needed, max daily dose of 6. 8. Allopurinol 300 mg p.o. at bedtime. 9. Almotriptan malate 12.5 mg p.o. once p.r.n. 10. Aspirin 81 mg p.o. at bedtime. 11. Warfarin 2 mg p.o. tablets given, take between 0 and 3 tablets as instructed by INR. 12. Docusate 100 mg p.o. b.i.d. p.r.n. constipation. DISCHARGE PLAN: Weightbearing as tolerated. Okay to shower. No bathing, swimming, or submerging wound. Cover with antibiotic ointment, gauze and Joe wrap. Call orthopedic office for increased drainage, increased redness, increased pain or fever. Go to the emergency room with shortness of breath or chest pain. Continue physical therapy and occupational therapy exercises as shown. Visiting home nurse to remove stanford in 10 to 14 days and do wound checks. Visiting home nurse will do blood draws for INR on Mondays and . 04/14/17, take 6 mg Coumadin; 04/15/17, 2 mg; 04/16/17, 4 mg; , 2 mg and 04/18/17 recheck the INR. Pain control with [place] 5/325 mg one- half to one tab p.o. p.r.n. every 4 to 6 hours as needed for pain, not to exceed 6 tablets daily. Follow up with Dr. Garcia within 4 weeks, call for appointment. DELIA ELLINGTON [id number]/[facility] #: [id number] [facility]
== END 2017-04-14 14:22 | disposition home or self-care (01) | DRG 302 ==
LOC: AA 04-11 05:54 → SSU 04-11 13:20
PROVIDERS: ADMIT Orthopaedic Surgery; ATTEND Internal Medicine
PROC: 0SRC0J9 Replacement of Right Knee Joint with Synthetic Substitute, Cemented, Open Approach (ICD-10-PCS; principal; 2017-04-11 07:30)
DX: M17.0 Bilateral primary osteoarthritis of knee (principal); E66.01 Morbid (severe) obesity due to excess calories; Z68.41 Body mass index [BMI] 40.0-44.9, adult; E11.9 Type 2 diabetes mellitus without complications; J45.909 Unspecified asthma, uncomplicated; G47.30 Sleep apnea, unspecified; K21.9 Gastro-esophageal reflux disease without esophagitis; I10 Essential (primary) hypertension; G43.909 Migraine, unspecified, not intractable, without status migrainosus; E04.1 Nontoxic single thyroid nodule; Z88.0 Allergy status to penicillin; Z88.5 Allergy status to narcotic agent; Z88.8 Allergy status to other drugs, medicaments and biological substances; Z79.82 Long term (current) use of aspirin; Z79.01 Long term (current) use of anticoagulants; Z82.49 Family history of ischemic heart disease and other diseases of the circulatory system; Z83.6 Family history of other diseases of the respiratory system; Z78.0 Asymptomatic menopausal state
CPT/HCPCS: 36415; 80048; 85014; 85018; 85049; 85610; 86850; 86900; 86901; 88305; 88311; 94760; A9270-GY; C1776; J0690; J1100; J1200; J1240; J1644; J1885; J2001; J2250; J2300; J2405; J2704; J2765; J3010

== ENCOUNTER 2022-09-17 07:29 | Observation (INO) ==
[~2022-09-17 07:29] MED LIST: Buffered Lidocaine 1% SYRIN 1 ml INTRADERM ONE; Bupivacaine 0.25% EPI 200,000 30 ML SDV ONE; Bupivacaine 0.25% SDV 30 ML ONE; Lactated Ringers 1000 ml BAG 1,000 ML IV SCH; Naloxone 0.4 mg VIAL 0.4 mg/ml 1 ml VIAL IV PRN; Ondansetron 4 mg VIAL 2 MG/ML 2 ml VIAL IV PRN
[2022-09-17 08:03] LABS: Hematocrit 39.9 % (35-45); Hemoglobin 13.4 g/dL (11.5-14.3); Mean Corpuscular Hemoglobin 28.1 pg (27-33); Mean Corpuscular Hgb Conc 33.7 g/dL (31-36); Mean Corpuscular Volume 83.4 fL (80-97); Mean Platelet Volume 8.7 fL (7.5-11.2); Platelet Count 257 10^3/uL (150-450); Red Blood Count 4.78 10^6/uL (3.63-4.92); Red Cell Distribution Width 14.4 % (12-17); White Blood Count 5.4 10^3/uL (3.8-11.8)
[2022-09-17] MEDS ORDERED: Propofol 10 MG/ML 20 ML BTL ONE ×3 (08:13→11:34)
[2022-09-17] MEDS ORDERED: Clindamycin 900 MG/50 **NS BAG 900 MG/50 ML BAG ONE (08:13)
[2022-09-17] MEDS ORDERED: Tranexamic Acid 1 GM/100ML BAG 2,000 MG/200 ML BAG IV ONE (08:13)
[2022-09-17] MEDS ORDERED: Lidocaine 2% PF 5 ML VIAL ONE (08:13)
[2022-09-17] MEDS ORDERED: fentaNYL 100 mcg/2 ml 50 MCG/ML VIAL ONE (08:13)
[2022-09-17] MEDS ORDERED: Midazolam 2 mg/2 ml VIAL 1 mg/ml 2 ml VIAL (2 mg) ONE (08:16)
[2022-09-17] MEDS ORDERED: BUPIVACAINE **LIPOSOME/PF 13.3 MG/ML (266MG/ 20ML) VIAL (RESTRICTED) INFIL ONE (08:30)
[2022-09-17 08:34] LABS: Rapid COVID-19 Molecular Undetected (Undetected)
[2022-09-17] MEDS ORDERED: Dexamethasone IV 4 MG/ML VIAL 1 ml VIAL ONE (08:48)
[2022-09-17] MEDS ORDERED: Bupivacaine 0.5% SDV PF 30ML VIAL ONE (08:48)
[2022-09-17] MEDS ORDERED: Bupivacaine 0.25% SDV PF 10 ML VIAL INJ ONE (09:01)
[2022-09-17] MEDS ORDERED: Bupivacaine-MPF SPINAL 7.5 MG/ML - 2ML AMP ONE (09:02)
[2022-09-17] MEDS ORDERED: Sterile Water for Inj 10 ML ONE (10:18)
[2022-09-17] MEDS ORDERED: Ondansetron 4 mg VIAL 2 MG/ML 2 ml VIAL ONE (12:00)
[2022-09-17] MEDS ORDERED: Morphine 2 MG/ML SYRINGE IV PRN (12:27)
[2022-09-17] MEDS ORDERED: Magnesium Hydroxide LIQ 30 ML UDC PO PRN (12:27)
[2022-09-17] MEDS ORDERED: Ondansetron 4 mg VIAL 2 MG/ML 2 ml VIAL IV PRN (12:27)
[2022-09-17] MEDS ORDERED: Lactulose 30 ml UDC PO PRN (12:27)
[2022-09-17] MEDS: Lactated Ringers 1000 ml BAG 1,000 ML IV SCH (15:05)
[2022-09-17] MEDS ORDERED: Prochlorperazine 5 mg/ml 2 ml VIAL (10 mg) IV PRN (15:09)
[2022-09-17] MEDS: Clindamycin 600 MG/D5W BAG 600 MG/50 ML BAG IV SCH (18:51)
[2022-09-17] MEDS: Magnesium Hydroxide LIQ 30 ML UDC PO SCH (21:16)
[2022-09-18] MEDS: Clindamycin 600 MG/D5W BAG 600 MG/50 ML BAG IV SCH ×2 (01:37→09:10)
[2022-09-18] MEDS: Lactated Ringers 1000 ml BAG 1,000 ML IV SCH (01:37)
[2022-09-18] MEDS: Ondansetron ODT 4 mg TAB 4 MG TAB PO PRN ×2 (05:35→11:59)
[2022-09-18 05:47] LABS: Hematocrit 35.7 % (35-45); Hemoglobin 12.1 g/dL (11.5-14.3); Mean Platelet Volume 8.8 fL (7.5-11.2); Platelet Count 226 10^3/uL (150-450)
[2022-09-18 06:06] LABS: Calcium 8.9 mg/dL (8.6-10.3); Creatinine, Serum 0.85 mg/dL (0.51-0.95); Potassium 4.9 mmol/L (3.5-5.0); eGFR CKD-EPI 77.9 (>60)
[2022-09-18] MEDS: Magnesium Hydroxide LIQ 30 ML UDC PO SCH ×2 (08:07→08:09)
[2022-09-18] MEDS ORDERED: Vitamin THERAPEUTIC TAB PO SCH (09:00)
[2022-09-18 10:12] VITALS: BP 127/66
== END 2022-09-18 12:45 | disposition home or self-care (01) ==
LOC: OR 07:29 → SSU 07:29
PROVIDERS: ADMIT Orthopaedic Surgery Sports Medicine; ATTEND Orthopaedic Surgery Sports Medicine